=== PATIENT | male | born 1990 | race Caucasian/White ===

== ENCOUNTER 2016-08-17 04:38 | Day surgery (SDC) | payer BC ==
[2016-08-17] MEDS ORDERED: IOPAMIDOL 300 (61%) 150 ML VIAL IV ONE (04:39)
[2016-08-17] MEDS ORDERED: LACTATED RINGERS 1,000 ML ONE ×2 (05:00→11:04)
[2016-08-17] MEDS ORDERED: HYDROMORPHONE HCL 1 MG/ML SYRINGE ONE (05:00)
[2016-08-17] MEDS ORDERED: ONDANSETRON 4 MG/2ML 2 ML VIAL ONE ×2 (05:00→10:43)
[2016-08-17 05:15] LABS: ABSOLUTE NEUTROPHIL COUNT 10.8 K/mm3 (1.8-7.7); BASO # 0.1 K/mm3 (0.0-0.2); BASO % 0.5 % (0.2-1.0); EOS # 0.1 (0.0-0.5); EOS % 0.4 % (0.9-2.9); HEMATOCRIT 44.3 % (32.0-52.0); HEMOGLOBIN 15.2 gm/l (14.0-18.0); IMM NEUT # 0.1 K/mm3 (0-0.2); IMM NEUT% 0.3 % (0-1); LYMPH % 19.7 % (15-45); MEAN CELL VOLUME 88.4 fl (80.0-94.0); MEAN CORPUSCULAR HEMOGLOBIN 30.3 pg (27.0-31.0); MEAN CORPUSCULAR HGB CONC 34.3 g/dl (33.0-37.0); MEAN PLATELET VOLUME 11.8 fl (7.4-10.4); MONO # 1.1 (0.0-0.8); MONO % 7.4 % (4-12); NEUT % 71.7 % (43-75); PLATELET COUNT 175 K/mm3 (130-400); RED CELL DISTRIBUTION WIDTH 12.1 % (11.5-14.5)
[2016-08-17] MEDS ORDERED: ERTAPENEM SODIUM 1 G VIAL ONE (06:04)
[2016-08-17] MEDS ORDERED: SODIUM CHLORIDE 0.9% 50 ML IV ONE (06:04)
[2016-08-17 06:17] LABS: URINE BILIRUBIN NEGATIVE (NEGATIVE); URINE BLOOD NEGATIVE (NEGATIVE); URINE GLUCOSE (UA) NEGATIVE (NEGATIVE); URINE LEUKOCYTE ESTERASE NEGATIVE (NEGATIVE); URINE NITRITE NEGATIVE (NEGATIVE); URINE PROTEIN NEGATIVE (NEGATIVE); URINE UROBILINOGEN NORMAL (0-1 mg/dl)
[2016-08-17 06:19] LABS: URINE APPEARANCE CLEAR; URINE COLOR YELLOW
[2016-08-17 06:43] LABS: ALB/GLOB RATIO 1.6 (>1.0); ALBUMIN 4.7 gm/dL (3.5-5.7); CALCIUM 9.7 mg/dL (8.6-10.3)
[2016-08-17] MEDS ORDERED: MORPHINE SULFATE 2 MG/ML SYRINGE IV PRN (07:07)
[2016-08-17] MEDS ORDERED: MENTHOL/CETYLPYRD 1 EACH LOZENGE PO PRN (07:07)
[2016-08-17] MEDS ORDERED: ONDANSETRON 4 MG/2ML 2 ML VIAL IV PRN ×2 (07:07→12:21)
[2016-08-17] MEDS ORDERED: BLISTEX LIPSTICK 1 EACH TP PRN (07:07)
[2016-08-17] MEDS ORDERED: DIPHENHYDRAMINE HCL 50 MG/1 ML VIAL IV PRN (07:07)
[2016-08-17] MEDS ORDERED: LACTATED RINGERS 1,000 ML IV SCH ×3 (07:15→13:45)
[2016-08-17] MEDS ORDERED: PUMP TUBING ONE (07:22)
--- NOTE | 2016-08-17 07:29 | CT ---
Exam: CT abdomen and pelvis with contrast COMPARISON: None INDICATION: Right lower quadrant pain and elevated WBC. TECHNIQUE: CT examination of the abdomen and pelvis was obtained following the administration of 125 mL Isovue-300 intravenous contrast. FINDINGS: The appendix is dilated, measuring up to 10 mm, and demonstrates wall thickening and minor surrounding inflammatory changes. A few reactive lymph nodes are seen within the right lower quadrant. The remainder of the bowel is unremarkable and there is no bowel obstruction, free air or free intraperitoneal fluid. Cholelithiasis. Spleen is at the upper limits of normal measuring 13.9 cm in diameter. Liver is unremarkable. Pancreas, kidneys and adrenal glands are within normal limits. Lung bases are clear. No worrisome lytic or blastic osseous lesion is identified. Scattered sclerotic densities within the right femoral head and right hemipelvis are noted, most likely reflecting bone islands. IMPRESSION: Acute appendicitis. A few incidental findings as above. Preliminary report transmitted to the emergency department from [facility] at 0552 hours 08/17/2016.
--- NOTE | 2016-08-17 07:33 | PDOC1 ---
History & Physical: CC: Abdominal Pain HPI: 25yo M with abdominal pain. This started 6 hours ago. It woke him up from sleep and was diffuse, constant, and achy. The pain worsened, prompting ER evaluation. He states that he has had mild abdominal discomfort and loose stools over the last 2 days. He does endorse anorexia, but denies any recent F/C /NV/CP/SOB, change in bladder fx, constipation, unintentional weight loss, easy bleeding/bruising, or other associated symptoms. REVIEW OF SYSTEMS CONSTITUTIONAL: As per HPI. EARS, NOSE, MOUTH, THROAT: No sneezing or runny nose CARDIOVASCULAR: As per HPI. RESPIRATORY: As per HPI. GASTROINTESTINAL: As per HPI. GENITOURINARY: As per HPI. NEUROLOGICAL: No history of seizures HEMATOLOGIC: As per HPI. MUSCULOSKELETAL: No change in strength. LYMPHATICS: No history of splenectomy. PSYCHIATRIC: No change in personality or affect PMH: None PSH: Skin graft on ear drum at age 5 Meds: None All: NDKDA SH: Occasional EtOH, denies Tobacco FH: No FH of colorectal cancer or IBD Vitals (last 24 hours): T 99.5, BP 1`61/96, HR 94, RR 24, SpO2 98% on RA Physical Exam: General/Constitutional: Vitals documented above, comfortable in NAD Psych: A&O x 3, normal judgment and insight. Recent and remote memory intact. Mood and affect normal. Eyes: Pupils equal, no scleral icterus Ears, Nose, Mouth, Throat: gross hearing intact Neck: Supple Heart: RRR, no LE edema Lungs: Equal rise and fall of chest wall, non-labored breathing, no audible wheezes Neuro: Gross sensation intact Abdomen: Soft, ND, mild RLQ TTP without guarding. Labs (Last 24 hours): Laboratory Results - last 24 hr 08/17/16 08/17/16 05:00 05:55 WBC 15.1 H RBC 5.01 Hgb 15.2 Hct 44.3 MCV 88.4 MCH 30.3 MCHC 34.3 RDW 12.1 Plt Count 175 Neut % (Auto) 71.7 Lymph % (Auto) 19.7 [place] % (Auto) 7.4 Baso % (Auto) 0.5 Absolute Neuts (auto) 10.8 H Eosinophils % 0.4 L Sodium 140 Potassium 3.8 Chloride 102 Carbon Dioxide 27 Anion Gap 15 BUN 22 Creatinine 1.0 Estimated GFR 93 BUN/Creatinine Ratio 22 H Glucose 103 H Calcium 9.7 Total Bilirubin 0.4 AST 18 ALT 28 Alkaline Phosphatase 61 Total Protein 7.7 Albumin 4.7 Globulin 3.0 Albumin/Globulin Ratio 1.6 Urine Color Yellow Urine Appearance Clear Urine pH 6.0 Ur Specific B[place]ton 1.020 Urine Protein Negative Urine Glucose (UA) Negative Urine Ketones Negative Urine Blood Negative Urine Nitrite Negative Urine Bilirubin Negative Urine Urobilinogen Normal Ur Leukocyte Esterase Negative % Immature Granulocyt 0.3 Radiology: CT A/P: 9mm appendix with associated inflammatory changes c/w early acute appendicitis A/P: [address] proven appendicitis, I recommend laparoscopic appendectomy The operation and expected post-operative course were discussed at length. We discussed the risks of the operation to include, but not limited to: bleeding, pain, infection, scar, damage to surrounding structures (small bowel, colon, bladder), failure to improve health, need for additional procedures (to include conversion to open and ileocecectomy), and the risks of anesthesia (heart attack , arrhythmia, stroke, blood clot, and ). The patient understands these risks and agrees to proceed with surgery. Pt was given 1g IV Invanz in ED. Will plan for laparoscopic appendectomy later today. Jesús Santos MD General Surgeon C: [phone]
[2016-08-17 07:57] VITALS: BMI 31.8
[2016-08-17] MEDS ORDERED: MIDAZOLAM HCL 1 MG/ML 2ML VIAL ONE (10:43)
[2016-08-17] MEDS ORDERED: ROCURONIUM BROMIDE 10 MG/ML DOSE IV ONE (10:43)
[2016-08-17] MEDS ORDERED: METOCLOPRAMIDE HCL 5 MG/ML 2ML VIAL ONE (10:43)
[2016-08-17] MEDS ORDERED: PROPOFOL 0 ML IV ONE ×5 (10:43→15:19)
[2016-08-17] MEDS ORDERED: SUCCINYLCHOLINE CHL 20 MG/ML DOSE ONE (10:43)
[2016-08-17] MEDS ORDERED: DEXAMETHASONE SOD PHOS 4 MG/1 ML VIAL ONE (10:43)
[2016-08-17] MEDS ORDERED: FENTANYL 5 ML ONE (10:43)
[2016-08-17] MEDS ORDERED: LIDOCAINE 2% (MULTI DOSE) 10 ML VIAL ONE ×2 (10:43→12:07)
[2016-08-17] MEDS ORDERED: KETOROLAC TROMETHAMINE 30 MG/ML 1 ML VIAL ONE (10:43)
[2016-08-17] MEDS ORDERED: LIDOCAINE 1%/EPI (MULTI DOSE) 20 ML VIAL ONE (11:25)
[2016-08-17] MEDS ORDERED: BUPIVACAINE 0.5% (PRES FREE) 30 ML VIAL ONE (11:25)
[2016-08-17] MEDS ORDERED: HYDROMORPHONE HCL 1 MG/ML SYRINGE IV PRN (12:21)
[2016-08-17] MEDS ORDERED: FENTANYL 100 MCG/2 ML VIAL IV PRN (12:21)
[2016-08-17] MEDS ORDERED: NALOXONE HCL 0.4 MG/ML VIAL IV PRN (12:21)
[2016-08-17] MEDS ORDERED: ATROPINE SULFATE 0.4 MG/1 ML VIAL IV PRN (12:21)
[2016-08-17] MEDS ORDERED: PROMETHAZINE HCL 25 MG/ML VIAL IM PRN (12:21)
--- NOTE | 2016-08-17 13:44 | PCMON ---
OPERATIVE REPORT Pre-Op Diagnosis: Acute appendicitis Post-Op Diagnosis: Acute suppurative appendicitis Operation: Laparoscopic Appendectomy Surgeon: Giovanny Santos MD Power Chisel Operator: None Anesthesia: GETA Pre-Operative Antibiotics: Invanz, 1g Specimen Sent to Lab: Appendix Date of Operation: 08/17/16 Infection Classification: 3 Estimated Blood Loss: 20mL Indication for Procedure: The patient is a 25 year old man with 1 day of right lower quadrant pain. A CT scan shows a 9mm appendix with associated inflammatory changes. These findings are consistent with acute appendicitis. The plan for today is a laparoscopic appendectomy Description of Findings: The appendix was inflamed and suppurative but not perforated. Detailed Operative Report: The patient was met in the pre-operative holding area by the operating team. All questions and concerns were addressed appropriately. The patient was taken to the operating room where general anesthesia was induced. A Guerrero catheter was placed. The abdomen was prepped and draped in the normal sterile fashion. ~ Local anesthetic was injected into the proposed infra-umbilical incision site. The skin was incised. The fascia was elevated and incised. Direct entry into the peritoneum was confirmed. A 12mm~balloon trocar was inserted into the abdomen. The abdomen was insufflated to a pressure of 15mm Hg, which the patient tolerated well. The laparoscope was inserted and the abdomen was inspected. There were no injuries from initial trocar placement. Two additional 5mm trocars were placed in the left lower quadrant and supra-pubic positions. The table was placed in the Trendelenburg position with the right side up. ~ The appendix was readily visible. It appeared inflamed and suppurative, but not perforated. The appendix was grasped and a mesenteric window was created at the base of the appendix. The appendix was divided with a linear cutting stapler using a 45mm blue load. The mesoappendix elongated and was divided using three 45mm white loads. The appendix was placed into an endoscopic retrieval bag and removed from the abdomen. There was some mild bleeding from the meso- appendiceal staple line that was re-enforced with hemostatic clips. The right lower quadrant was thoroughly irrigated and hemostasis was ensured. ~ Secondary trocars were removed under direct vision. The infra-umbilical trocar was removed and the abdomen was allowed to collapse. The fascia of the infra- umbilical site was closed with 0-Vicryl in a figure of eight fashion. All skin was closed with 4-0 Monocryl. The wounds were dressed with Dermabond. The Guerrero catheter was removed. The patient was then awakened from anesthesia, extubated, and transferred to the PACU without complication. Prior to closing, all sponge and instrument counts were correct.~~Dr. Santos was present for the entire procedure. GIOVANNY SANTOS MD
--- NOTE | 2016-08-17 14:36 | PDOC5 ---
ADMIT DATE: 08/17/16 DISCHARGE DATE: 08/17/16 ADMISSION DIAGNOSES: acute appendicitis PROCEDURES PERFORMED THIS HOSPITALIZATION: laparoscopic appendectomy CONSULTATIONS: general surgery HOSPITAL COURSE: This is a 25 year old presented with acute appendicitis. He was started on IV antibiotics and was taken to the OR for a laparoscopic appendectomy, which he tolerated well. At the time of discharge, he was tolerating a regular diet, his pain was well controlled with oral pain medication, and he was ambulating without difficulty. He was discharged home on the day of surgery in good condition. - Objective Vital Signs Temperature 98.4 F 08/17/16 07:10 Pulse Rate 80 08/17/16 07:10 Respiratory Rate 18 08/17/16 07:10 Blood Pressure 133/74 08/17/16 07:10 O2 Saturation by Pulse Oximetry 98 08/17/16 08:00 Oxygen Delivery Method Room Air Oxygen Flow Rate 0 - Discharge Plan Instruction Forms: Appendectomy (Adult) Forms: Work Release Form Prescriptions: Naproxen [NAPROSYN 500 MG TABLET (SHF)] 500 mg PO BID #30 tablet Oxycodone HCl/Acetaminophen [PERCOCET 5/325 MG TABLET (SHF)] 1 - 2 tab PO Q4H PRN #20 tab PRN Reason: Pain Polyethylene Glycol 3350 [MIRALAX 17 G PACKET (SHF)] 17 g PO DAILY #1 bot Follow-Up: Kita Valente MD [Staff Physician] -
[2016-08-17] MEDS: OXYCODONE/ACETAMINOPHEN 5/325 MG TABLET PO PRN ×2 (15:08→17:10)
[2016-08-17] MEDS ORDERED: KETAMINE HCL UD SYRINGE 100 MG/2 ML IV ONE (15:16)
[2016-08-17] MEDS ORDERED: PROPOFOL 20 ML IV ONE ×3 (16:24)
[2016-08-17 18:33] VITALS: BP 116/84
--- NOTE | 2016-08-21 10:55 | SURGPATH ---
[facility] [address] [place] [id number] Patient Name: SILVINO MÉNDEZ MR#: [id number] : 1990 Gender: M Specimen #: [id number] Collected: 08/17/2016 Received: 08/18/2016 Reported: 08/21/2016 Submitting Phys: GIOVANNY NAVARRETE Copy To Phys: [facility] Clinical History / Pre-Operative Diagnosis: ACUTE APPENDICITIS Specimen Source / Surgical Procedure Performed: APPENDIX Interpretation: APPENDIX, APPENDECTOMY: - MARKED ACUTE APPENDICITIS AND PERIAPPENDICITIS. - NO EVIDENCE OF MALIGNANCY. Electronically Signed Out Adarsh Arroyo M.D., Ph.D. Gross Description: The specimen is received in a formalin filled container labeled with the patient's name and "appendix". A vermiform appendix is 12.0 x 0.8 cm. The attached hemorrhagic periappendiceal fat is 10.0 x 1.5 x 1 cm. The serosa is moderately hemorrhagic and has focal areas slightly covered with white herrera fibrinopurulent exudate. The surgical staple line is removed and the adjacent section is inked black and submitted as margin. The lumen is patent and filled with soft hemorrhagic fecal material. There is no nodule or fecalith. Three automotive leasing sales representative sections are submitted in one cassette including a cross section through the appendiceal surgical margin, a central cross section and a longitudinal section through the tip. Gina Jimenez. Microscopic Description: Examination of multiple sections from the appendix shows appendix with a marked acute inflammatory cell infiltrate extending from the lumen through the wall of the appendix into the periappendiceal soft tissue. There is no evidence of malignancy. 1: [id number] K35.80
== END 2016-08-17 18:44 | disposition home or self-care (01) ==
LOC: ED 04:38 → SDC 06:10 → MS 06:10 → SDC 18:44
PROVIDERS: ATTEND Surgery
PROC: 0DTJ4ZZ Resection of Appendix, Percutaneous Endoscopic Approach (ICD-10-PCS; principal; 2016-08-17)
DX: K35.80 Unspecified acute appendicitis (principal)